=== PATIENT | male | born 1970 | race Caucasian/White ===

== ENCOUNTER 2017-10-27 06:05 | Day surgery (SDC) | payer OTHER ==
[~2017-10-27] VITALS: Ht 152.4 cm; Wt 120.9 kg
[~2017-10-27 06:05] MED LIST: ACETAMINOPHEN 325 MG TABLET PO PRN; ATOR40TA28 PO; METF500T6 PO; RINGERS SOLUTION,LACTATED 500 ML IV ONE
[2017-10-27] MEDS ORDERED: EPINEPHrine 1:1,000 [1 MG/ML] AMP IM ONE (06:06)
[2017-10-27] MEDS ORDERED: PrednisoLONE ACETATE 1% 5 ML OPHTHALMIC SUSPENSION OU ONE (06:06)
[2017-10-27] MEDS ORDERED: NEOMYCIN/POLYMYXIN B/DEXAMETH 3.5 GM OPHTHALMIC OINTMENT OU ONE (06:06)
[2017-10-27] MEDS ORDERED: LIDOCAINE HCL/PF 1% 2 ML VIAL INJ ONE (06:06)
[2017-10-27] MEDS ORDERED: DICLOFENAC SODIUM 0.1% 2.5 ML OPHTHALMIC SOLUTION ONE (06:19)
[2017-10-27] MEDS ORDERED: RINGERS SOLUTION,LACTATED 500 ML IV ONE (06:19)
[2017-10-27] MEDS ORDERED: MOXIFLOXACIN HCL 0.5% 3 ML OPHTHALMIC SOLUTION ONE (06:19)
[2017-10-27] MEDS ORDERED: PHENYLEPHRINE HCL 2.5% 2 ML OPHTHALMIC SOLUTION ONE (06:20)
[2017-10-27] MEDS ORDERED: TETRACAINE HCL/PF 0.5% 4 ML OPHTHALMIC SOLUTION ONE (06:20)
[2017-10-27] MEDS ORDERED: CYCLOPENTOLATE HCL 2% 2 ML OPHTHALMIC SOLUTION ONE (06:20)
[2017-10-27] MEDS: TETRACAINE HCL/PF 0.5% 4 ML OPHTHALMIC SOLUTION OD SCH ×3 (06:46→06:57)
[2017-10-27] MEDS: PHENYLEPHRINE HCL 2.5% 2 ML OPHTHALMIC SOLUTION OD SCH ×3 (06:47→06:57)
[2017-10-27] MEDS: MOXIFLOXACIN HCL 0.5% 3 ML OPHTHALMIC SOLUTION OD SCH ×3 (06:47→06:57)
[2017-10-27] MEDS: CYCLOPENTOLATE HCL 2% 2 ML OPHTHALMIC SOLUTION OD SCH ×3 (06:47→06:57)
[2017-10-27] MEDS: DICLOFENAC SODIUM 0.1% 2.5 ML OPHTHALMIC SOLUTION OD SCH ×3 (06:47→06:57)
[2017-10-27 06:53] LABS: GLUCOMETER DEV NAME(LOC) SDS 5; GLUCOSE,POINT OF CARE 125 MG/DL (70-110)
[2017-10-27] MEDS ORDERED: SODIUM CHLORIDE 0.9% 500 ML IV ONE (06:56)
[2017-10-27] MEDS ORDERED: FentaNYL CITRATE-PF 100 MCG/2 ML VIAL IVP ONE (12:00)
[2017-10-27] MEDS ORDERED: MIDAZOLAM HCL 2 MG/2 ML VIAL IVP ONE (12:00)
== END 2017-10-27 09:10 | disposition home or self-care (01) ==
LOC: SURGERY 06:05
PROVIDERS: ATTEND Ophthalmology
DX: E11.36 Type 2 diabetes mellitus with diabetic cataract (principal); H25.011 Cortical age-related cataract, right eye; J45.998 Other asthma; E78.00 Pure hypercholesterolemia, unspecified; E66.3 Overweight; Z79.84 Long term (current) use of oral hypoglycemic drugs; Z79.899 Other long term (current) drug therapy; Z98.890 Other specified postprocedural states; Z68.43 Body mass index [BMI] 50.0-59.9, adult
CPT/HCPCS: 66984; 82962; C1780; J0171; J2250; J3010; J3490; J7120